=== PATIENT | female | born 1995 | race African-American/Black ===

== ENCOUNTER 2020-05-02 02:15 | Emergency (ER) | payer OTHER ==
[~2020-05-02] VITALS: Ht 175.3 cm; Wt 74.8 kg
[2020-05-02] MEDS ORDERED: NOHOMEMEDICATIONS (02:21)
[2020-05-02 05:46] VITALS: BP 106/54
== END 2020-05-02 05:48 | disposition home or self-care (01) ==
LOC: ER 02:15
DX: T74.21XA Adult sexual abuse, confirmed, initial encounter (principal); S00.81XA Abrasion of other part of head, initial encounter; Y07.03 Male partner, perpetrator of maltreatment and neglect; Y04.2XXA Assault by strike against or bumped into by another person, initial encounter